=== PATIENT | male | born 1940 | race Caucasian/White ===

== ENCOUNTER 2017-02-28 14:23 | Inpatient (IN) | payer MEDICARE, BC, OTHER ==
[~2017-02-28] VITALS: Ht 180.3 cm; Wt 95.1 kg
[2017-03-04] MEDS ORDERED: META48.53 PO (09:37)
[2017-03-04] MEDS ORDERED: FIBETAB PO (09:37)
[2017-03-04] MEDS ORDERED: DONE10TA7 PO (09:37)
[2017-03-04] MEDS ORDERED: GLUC1CAP16 PO (09:37)
[2017-03-04] MEDS ORDERED: MELO7.5T4 PO (09:37)
[2017-03-04] MEDS ORDERED: SAW450CA2 PO (09:37)
[2017-03-04] MEDS ORDERED: QUIN40TA2 PO (09:37)
[2017-03-04] MEDS ORDERED: CENTTAB PO (09:37)
[2017-03-20] MEDS ORDERED: LACTATED RINGER'S 1000 ML IV PRN (08:30)
[2017-03-20] MEDS ORDERED: METOPROLOL TARTRATE 25 MG TAB PO PRN (08:30)
[2017-03-20] MEDS ORDERED: CHLORHEXIDINE GLUCONATE 2 % 1 PACK (2 CLOTHS) TOPICAL PRN (08:30)
[2017-03-20] MEDS ORDERED: POVIDONE IODINE 5% (ANTISEPSIS KIT) 4 APPLICATIONS EACH NARE PRN (08:30)
[2017-03-20] MEDS ORDERED: SODIUM CHLORID 0.9% 500 ML IV PRN (08:30)
[2017-03-20] MEDS ORDERED: INSULIN HUMAN REGULAR 1,000 UNITS/10 ML VIAL SQ PRN (08:30)
[2017-03-20] MEDS ORDERED: VANCOMYCIN 1000 MG/NS 250 ML (for <70 kg) IV SCH ×2 (08:45)
[2017-03-20] MEDS ORDERED: DEXAMETHASONE SOD PHOS 20 MG/5 ML VIAL IV SCH (08:45)
[2017-03-20] MEDS ORDERED: ceFAZolin 2 GM PREMIX 50 ML IV SCH (08:45)
[2017-03-20] MEDS: POVIDONE IODINE 7.5% SCRUB 118 ML BOTTLE TOPICAL SCH ×2 (08:59→09:23)
[2017-03-20] MEDS ORDERED: MULT1TAB PO (09:07)
[2017-03-20] MEDS ORDERED: CALC1TAB68 PO (09:07)
[2017-03-20] MEDS ORDERED: ACCU40TA PO (09:07)
[2017-03-20 09:10] VITALS: BP 164/96; PULSE 66; RESP 16; TEMP 98.9; O2SAT 96
[2017-03-20] MEDS ORDERED: BUPIVACAINE LIPOSOME PF 1.3% 20 ML VIAL ONE (09:46)
[2017-03-20] MEDS ORDERED: ROPIVACAINE PERI-ARTICULAR INJECTION. P-ARTICULR SCH ×5 (10:00)
[2017-03-20] MEDS ORDERED: TRANEXAMIC ACID INJ 904 MG in SODIUM CHLORIDE 0.9% INJ 100 ML IV SCH ×2 (10:00→13:30)
[2017-03-20] MEDS ORDERED: GENTAMICIN SULFATE 80 MG/2 ML VIAL ONE (10:51)
[2017-03-20] MEDS ORDERED: ePHEDrine/NS 25 MG/5 ML SYR IV ONE (12:00)
[2017-03-20] MEDS ORDERED: LACTATED RINGER'S 1000 ML INJ 1,000 ML IV ONE (12:00)
[2017-03-20] MEDS ORDERED: ONDANSETRON HCL 4 MG/2 ML VIAL IV PUSH ONE (12:00)
[2017-03-20] MEDS ORDERED: PROPOFOL 200 MG/20 ML AMP IV ONE (12:00)
[2017-03-20] MEDS ORDERED: MORPHINE SULFATE 4 MG/ML INJ IV PUSH PRN (13:30)
[2017-03-20] MEDS ORDERED: BISACODYL 10 MG SUPP RECTAL PRN (13:30)
[2017-03-20] MEDS ORDERED: ZOLPIDEM TARTRATE 5 MG TAB PO PRN (13:30)
[2017-03-20] MEDS ORDERED: ONDANSETRON HCL 4 MG/2 ML VIAL IVP PRN (13:30)
[2017-03-20] MEDS ORDERED: SODIUM CHLORIDE 0.9% FLUSH 5 ML FLUSH IVF PRN (13:30)
[2017-03-20] MEDS ORDERED: NALOXONE HCL 0.4 MG/ML AMP IV PRN (13:30)
[2017-03-20] MEDS ORDERED: ALUMINUM/MAGNESIUM/SIMETH 30 ML CUP PO PRN (13:30)
[2017-03-20] MEDS ORDERED: Post-op Orders (for Pharmacy) MISC XX ONE (13:30)
[2017-03-20] MEDS ORDERED: diphenhydrAMINE HCL 50 MG/ML VIAL IV PRN (13:30)
--- NOTE | 2017-03-20 13:32 | PD.OP ---
cc: Kaveh Balderas MD Operative Report Date of Surgery: March 20, 2017 Preoperative Diagnosis: Left knee severe osteoarthritis Postoperative Diagnosis: Same Procedure: Left total knee arthroplasty Anesthesia: Spinal and adductor canal block Surgeon: Kaveh Balderas Green Material Value Added Assessor(s): BAKARI Caicedo The surgical procedure was assisted by my Advanced Registered Nurse Practitioner. My AIRCRAFT INSPECTOR presence was necessary throughout this case for the manipulation and positioning of the surgical extremity. My AIRCRAFT INSPECTOR was assisting me throughout the duration of this procedure. The skill set of an Advance Registered Nurse Practitioner was medically necessary to complete this procedure. During the surgical case, the concrete technician was working at the back table and the Advance Registered Nurse Practitioner was directly assisting me. Operation and Findings: IMPLANTS: DePuy Attune: Patella: size 38. Femur, posterior stabilized size 8. Tibia, rotating platform size 7. Tibial insert, rotating platform, posterior stabilized size 7 mm thickness. ESTIMATED BLOOD LOSS: 400 cc TOURNIQUET TIME: 39 minutes at 250 mmHg pressure. JUSTIFICATION FOR PROCEDURE: The patient has end-stage osteoarthritis to the knee. There is an attached conservative measures pathway form in the chart that describes the nonoperative measures that were undertaken prior to consideration of surgical management. The patient understood the risks and benefits of surgical management. See my office notes for further details PROCEDURE: The patient was brought back to the operative theatre. Adequate anesthesia was obtained. The patient received intravenous vancomycin and Ancef. The lower extremity was prepped and draped in the usual sterile fashion.The leg was exsanguinated, the tourniquet was raised. A standard anterior incision was performed followed by medial parapatellar arthrotomy was performed. End-stage arthritis was identified. Osteotomy of the patella was performed. We drilled holes for the patella. We trialed the patella component. We placed an intramedullary guide into the distal femur. We ultimately resected 13 mm off of the distal femur in 5 degrees of valgus. The remnants of the ACL and PCL were resected. Osteotomy of the proximal tibia was performed, resecting 5 mm off of the medial side. This was done with 3 degrees of posterior slope using an extramedullary guide. The distal end of the guide was placed in the mid aspect of the ankle. The femur was sized, and four chamfer cuts were completed in 3 of external rotation. We then cut the central box in the distal femur to replace the PCL. We resected the remnants of the menisci and removed osteophytes off of the femur and tibia. We then trialed the knee. We punched the tibia for the keel, and then used standard technique to cement in components. Excess cement was removed. We trialed the knee again and the final polyethylene thickness was chosen to provide extension to 0 degrees, and flexion of 140 degrees to gravity. The ligaments were appropriately balanced. Lateral release was necessary to obtain excellent patellofemoral tracking. The tourniquet was released and adequate hemostasis was obtained. Note that there was a vessel on the lateral aspect of the knee that did bleed quite a bit which was the source of the majority of blood loss. This was hemostased well prior to final closure. An intra-articular injection of a ropivacaine cocktail was injected. The posterior knee was inspected for excess cement, which was removed. The final polyethylene was put into position after thorough irrigation. We then closed deep fascia with a #2 Stratafix followed by skin with 2-0 Vicryl followed by precious. Postop plan is to weight-bear as tolerated. DVT prophylaxis will be performed with SCDmariana, JUDITH alexis, early mobilization, and Lovenox followed by aspirin. Kaveh Balderas MD March 20, 2017 13:32
[2017-03-20] MEDS ORDERED: ASPI325T PO (13:34)
[2017-03-20] MEDS ORDERED: NORC5TAB PO (13:34)
[2017-03-20] MEDS ORDERED: ENOX40P SQ (13:34)
[2017-03-20] MEDS ORDERED: DO NOT ADM ANY ANTICOAGULANT DRUGS PRN (14:00)
--- NOTE | 2017-03-20 14:02 | HHI.DCPOC ---
Discharge Care Plan Diagnosis: (1) Primary localized osteoarthrosis, lower leg (2) Status post total knee replacement, left Your Health Problems Are: Difficulty with ADL Goals to Promote Your Health * To prevent worsening of your condition and complications * To maintain your health at the optimal level Directions to Meet Your Goals Take your medications as prescribed Follow your dietary instruction Follow activity as directed Keep your appointments as scheduled Take your immunizations and boosters as scheduled If your symptoms worsen call your PCP, if no PCP go to Urgent Care Center or Emergency Room Smoking is Dangerous to Your Health. Avoid second hand smoke Call the 24-hour hour crisis hotline for domestic abuse at Narendra Winters March 20, 2017 14:02
[2017-03-20] MEDS ORDERED: MIDAZOLAM HCL 2 MG/2 ML VIAL ONE (14:03)
--- NOTE | 2017-03-20 14:03 | HHI.FF ---
Face to Face Verification Diagnosis: (1) Primary localized osteoarthrosis, lower leg (2) Status post total knee replacement, left Physical Therapy Gait training, Transfer training, bed to chair Knee: Total knee Left LE Weight Bearing: WB as tolerated Left LE Range of Motion: Active ROM Nursing Nursing: Gaston teaching, Dressing changes Dressing Changes: Daily dressing change I have seen patient Khanh Hansen on 03/20/17. My clinical findings support the need for the requested home health care services because: Limited ability to care for self High risk of falls I certify that my clinical findings support that this patient is homebound because: Post-op weakness Unsteady gait/balance Narendra Winters March 20, 2017 14:03
[2017-03-20] MEDS ORDERED: CPMMACHINE (14:04)
[2017-03-20] MEDS ORDERED: COMMODE 3-IN-11 MIS (14:04)
[2017-03-20] MEDS ORDERED: WALKER WHEELS/F1 MIS (14:04)
--- NOTE | 2017-03-20 15:14 | RADRPT ---
EXAM DATE/TIME: 03/20/2017 14:32 [facility] COMPARISON: No previous studies available for comparison. INDICATIONS : Post op left knee replacement. MEDICAL HISTORY : None. SURGICAL HISTORY : None. ENCOUNTER: Initial ACUITY: 1 day PAIN SCORE: 0/10 LOCATION: Left knee. FINDINGS: 2 views left knee. Total knee prosthesis. Alignment within normal limits. No evidence of fracture. An terior cutaneous precious. CONCLUSION: Postoperative appearance left total knee prosthesis. Sarmad Rai MD on March 20, 2017 at 15:12 Board Certified Radiologist. This report was verified electronically.
[2017-03-20] MEDS ORDERED: *morphine SULFATE 8 MG/ML PERIprocedure ONLY ONE (15:24)
[2017-03-20 16:31] VITALS: BP 124/76; PULSE 79; RESP 17; TEMP 96; O2SAT 94
[2017-03-20] MEDS: ACETAMINOPHEN/HYDROcodone 325 MG/5 MG TAB PO PRN ×3 (17:14→22:02)
[2017-03-20 20:01] VITALS: BP_SYST 131; BP_SYST 137; BP_DIAS 64; BP_DIAS 73; PULSE 77; PULSE 88; RESP 18; TEMP 94.5; TEMP 96.9; O2SAT 94; O2SAT 95
[2017-03-20] MEDS: DONEPEZIL HCL 5 MG TAB PO SCH (20:37)
[2017-03-20] MEDS: SODIUM CHLORIDE 0.9% FLUSH 5 ML FLUSH IVF SCH (20:38)
--- NOTE | 2017-03-20 22:44 | MB ---
cc: KAIT DOUGLAS MD DATE OF CONSULTATION 03/20/2017 DATE OF 1940 REASON FOR CONSULTATION Medical management. HISTORY OF PRESENT ILLNESS This pleasant 76-year-old white male who came into the hospital to have an elective left total knee arthroplasty. He is a patient of Dr. Balderas and has been followed by Dr. Balderas on an outpatient basis for his severe osteoarthritis. The patient participated in outpatient therapy and treatment regimens which assisted with his osteoarthritis and pain management but decided to have elective surgery. Today he had a left total knee arthroplasty. He is status post op in his private room sitting up in the chair. He is alert, oriented and cooperative. PAST MEDICAL HISTORY 1. Skin cancers. 2. Benign prostatic hypertrophy. 3. Nose fracture. 4. Dementia, mild. 5. Hypertension. 6. Seasonal allergies. PAST SURGICAL HISTORY 1. Repair of nose. 2. Right foot bunion surgery. 3. Tonsillectomy and adenoidectomy. ALLERGIES NONE KNOWN. MEDICATIONS 1. Accupril. 2. Fiber caps. 3. Metamucil. 4. Centrum. 5. Glucosamine. 6. [place]. 7. Donepizil. SOCIAL HISTORY Patient , currently lives with his . Denies any tobacco or illicit drug use. He does have a rare social beer, especially with special ball games. REVIEW OF SYSTEMS A 12-point review was done. Positives noted are status post left total knee arthroplasty with left knee pain and pain management. Severe osteoarthritis. Otherwise systems negative or unremarkable. PHYSICAL EXAMINATION VITAL SIGNS: Temperature is 97.7, pulse 83, respirations 18, blood pressure 142/66 and 123/65. O2 sat 95% currently on nasal cannula at 2 liters. GENERAL: Well-developed, well-nourished elderly white male looks to be his stated age. He is sitting up resting in the chair. Left knee has an ice pack and a bulky dressing which is clean, dry and intact. SKIN: [place], warm and dry. HEENT: Atraumatic, normocephalic. ELSA at 2. Tongue is midline. Speech is clear. No scleral icterus. NECK: Supple. CARDIOVASCULAR: S1-S2, regular rate and rhythm. No murmurs, rubs gallops. PULMONARY: Essentially clear anteriorly and posteriorly without wheezes, rales or rhonchi. ABDOMEN: Round, soft, nontender, nondistended. Active bowel sounds in all four quads. GENITOURINARY: Haynes catheter in place draining clear yellow urine. MUSCULOSKELETAL: Moves upper extremities with purpose. His hand frame changer are equal. Lower extremities can move his right leg with purpose. He is able to raise his left knee and left leg on command. NEUROLOGIC: He is alert and oriented. A good historian. Hand frame changer her equal. PSYCHIATRIC: Appropriate mood and affect. LABORATORY DATA Diagnostic data preop done on 03/04/2017 white count 6.2, hemoglobin 16.1, hematocrit 46.9, platelet count 205. MPV is 6.8. Eosinophil auto count 6.3. PT/INR 1.0. Chemistry, sodium 140, potassium 4.0, chloride 104, carbon dioxide 28.5, BUN 15, creatinine 1.1. GFR is 65. Fasting glucose 130. Total bilirubin 1.4. All other labs are normal in the chemistry profile. Urine is negative. No cultures indicated. IMAGING Showed left knee x-ray postoperative appearance of left total knee prosthesis. ASSESSMENT/PLAN 1. Osteoarthritis, severe. The patient is status post left total knee arthroplasty. 2. History of Benign prostatic hypertrophy. 3. History of seasonal allergies. 4. Hyperglycemia, mild, in the presence of no diabetes. Our plan is to monitor for any medical management. The patient will be followed per orthopedics for their expert opinion on pain management and his postoperative care. We will monitor his labs in the morning which will include a CBC and BMP. Bowel regimen which has been discussed in detail with the patient and his . We will visit daily and follow for any of his needs. To my knowledge the patient is full code, full aggressive care. Thank you very much for the consultation. Dictated by: BAKARI Zamora MD LEONA Hernandez/MARNI /6:11 PM /10:24 PM
[2017-03-20] MEDS: SODIUM CHLOR 0.9% 1000 ML INJ 1,000 ML IV SCH (23:29)
[2017-03-21] VITALS (8 sets, daily range): BP systolic 116–152; BP diastolic 60–85; PULSE 75–78; RESP 16–20; TEMP 96.3–97.7; O2SAT 92–97
[2017-03-21 05:09] LABS: HEMATOCRIT 35.6 % (39.0-51.0); MEAN CELL VOLUME 86.8 FL (80.0-100.0); MEAN CORPUSCULAR HEMOGLOBIN 30.4 PG (27.0-34.0); PLATELET COUNT 181 TH/MM3 (150-450); RED CELL DISTRIBUTION WIDTH 13.2 % (11.6-17.2); REVIEW FLAG FINAL; WHITE BLOOD COUNT 16.5 TH/MM3 (4.0-11.0)
[2017-03-21 05:29] LABS: BICARBONATE 26.3 MEQ/L (21.0-32.0); POTASSIUM 4.5 MEQ/L (3.5-5.1)
[2017-03-21] MEDS: ACETAMINOPHEN/HYDROcodone 325 MG/5 MG TAB PO PRN ×3 (05:33→19:58)
[2017-03-21] MEDS ORDERED: DEXAMETHASONE SOD PHOS 20 MG/5 ML VIAL IV ONE (07:45)
[2017-03-21] MEDS: LISINOPRIL 20 MG TAB PO SCH (08:29)
[2017-03-21] MEDS: SODIUM CHLORIDE 0.9% FLUSH 5 ML FLUSH IVF SCH ×2 (08:29→19:58)
[2017-03-21] MEDS: MAGNESIUM HYDROXIDE SUSP 30 ML CUP PO PRN (08:29)
[2017-03-21] MEDS: SODIUM CHLOR 0.9% 1000 ML INJ 1,000 ML IV SCH ×2 (08:30→19:58)
[2017-03-21] MEDS: PSYLLIUM FIBER SF/GF 6 GM POWD PKT PO PRN (08:32)
[2017-03-21] MEDS: ENOXAPARIN SODIUM 40 MG/0.4 ML SYRINGE SQ SCH (12:18)
--- NOTE | 2017-03-21 12:45 | PD.ORT.PN ---
Subjective Post Op Day #: 1 Subjective Remarks Patient OOB in chair with c/o mild pain to the left knee. Patient is having difficulty with urination. Objective Vitals Vital Signs Date Time Temp Pulse Resp B/P Pulse Ox O2 Delivery O2 Flow Rate FiO2 03/21/17 09:03 94 21 03/21/17 08:00 96.8 75 20 139/79 95 03/21/17 06:46 96.7 75 18 116/69 92 03/21/17 03:59 95 Nasal Cannula 2.00 03/21/17 00:58 96.9 77 18 131/64 94 03/20/17 20:01 96.9 77 18 131/64 94 03/20/17 20:01 94.5 88 18 137/73 95 03/20/17 16:31 96.0 79 17 124/76 94 03/20/17 15:45 97.7 83 18 142/66 95 Nasal Cannula 2 03/20/17 15:15 81 18 123/65 95 Nasal Cannula 2 03/20/17 15:00 81 17 132/66 95 Nasal Cannula 2 03/20/17 14:45 80 18 122/63 95 Nasal Cannula 2 03/20/17 14:30 81 17 117/59 94 Nasal Cannula 2 03/20/17 14:15 84 15 122/59 91 Nasal Cannula 2 03/20/17 13:58 97.5 86 15 122/62 93 Room Air I/O 03/20/17 03/20/17 03/20/17 03/21/17 03/21/17 03/21/17 07:00 15:00 23:00 07:00 15:00 23:00 Intake Total 1500 ml 560 ml 360 ml Output Total 650 ml 500 ml 200 ml Balance 850 ml 60 ml 160 ml Intake Oral 360 ml 360 ml IV Total 200 ml Other 1500 ml Output Urine Total 600 ml 500 ml 200 ml Estimated Blood Loss 50 ml # Bowel Movements 0 0 Result Diagram: 03/21/17 0444 03/21/17 0444 Imaging Last 24 hours Impressions Knee X-Ray 03/20/17 1329 Signed Impressions: Service Date/Time: Monday, March 20, 2017 14:32 - CONCLUSION: Postoperative appearance left total knee prosthesis. Sarmad Rai MD Procedures Left TKA Objective Remarks The patient's dressing was changed with scant serosanguineous drainage. Incision is well approximated with surgical clips intact. No redness or s/s of infection. EHL/TA/G intact. No calf tenderness and swelling. 2+ pedal pulses. Minimal swelling. + SILT Assessment & Plan Ortho Post Op Day #: 1 Problem List: Assessment and Plan POD #1: Left TKA 1. WBAT LLE 2. Lovenox followed by ASA for DVT prophylaxis 3. Ice to the left knee PRN 4. I will order a STAT UA to r/o infection and will order flomax. 5. Stable for discharge home with home health today if urinary symptoms improve. Narendra Winters Mar 21, 2017 12:45
[2017-03-21] MEDS: TAMSULOSIN HCL 0.4 MG CAP PO SCH (14:03)
[2017-03-21 14:48] LABS: BACTERIA, URINE FEW /hpf; BLOOD, URINE LARGE (NEG); GLUCOSE,URINE NEG (NEG); KETONE, URINE NEG (NEG); MUCUS URINE FEW /lpf (OCC); NITRITE,URINE NEG (NEG); PH, URINE 5.5 (5.0-8.5); SQUAMOUS EPITHELIAL CELL URINE 2 /hpf (0-5)
[2017-03-21 14:49] LABS: COMMENT (UR) CULTURE INDICATED; CULTURE IF INDICATED CULTURE INDICATED; URINE COLOR LIGHT-BROWN (YELLW/STRAW)
--- NOTE | 2017-03-21 15:00 | HHI.PR ---
Subjective Remarks Sitting up in chair Alert and awake Mild anxiety over urinary retention Up to bathroom with minimal assistance for BM Bowel regimen BM yesterday Left knee dressing clean dry and intact Afebrile Objective Objective Results - Vital Signs Date Time Temp Pulse Resp B/P Pulse Ox O2 Delivery O2 Flow Rate FiO2 03/21/17 12:00 96.3 78 20 146/79 96 03/21/17 09:03 94 21 03/21/17 08:00 96.8 75 20 139/79 95 03/21/17 06:46 96.7 75 18 116/69 92 03/21/17 03:59 95 Nasal Cannula 2.00 03/21/17 00:58 96.9 77 18 131/64 94 03/20/17 20:01 96.9 77 18 131/64 94 03/20/17 20:01 94.5 88 18 137/73 95 03/20/17 16:31 96.0 79 17 124/76 94 03/20/17 15:45 97.7 83 18 142/66 95 Nasal Cannula 2 03/20/17 15:15 81 18 123/65 95 Nasal Cannula 2 03/20/17 15:00 81 17 132/66 95 Nasal Cannula 2 I/O 03/20/17 03/20/17 03/20/17 03/21/17 03/21/17 03/21/17 07:00 15:00 23:00 07:00 15:00 23:00 Intake Total 1500 ml 560 ml 360 ml Output Total 650 ml 500 ml 200 ml Balance 850 ml 60 ml 160 ml Intake Oral 360 ml 360 ml IV Total 200 ml Other 1500 ml Output Urine Total 600 ml 500 ml 200 ml Estimated Blood Loss 50 ml # Bowel Movements 0 0 Result Diagram: 03/21/17 0444 03/21/17 0444 ROS General: Weakness (generalized left knee day 1 postop, TKA) Pulmonary: Other (lung volumes normal) /OVER HAULER HELPER: Dysuria, Other (urinary retention possible) Physical Exam Physical Exam PHYSICAL EXAMINATION GENERAL: This is an elderly well-nourished male Sitting up in a chair He is alert and awake, HEAD: Normocephalic, atraumatic Facial features appear symmetric. OROPHARYNGEAL: Oropharynx without erythema or edema. NECK: Supple. Trachea midline without deviation. CARDIAC: Regular rhythm, regular rate, S1 and S2 are heard. LUNGS: Clear to auscultation bilaterally. Respirations unlabored ABDOMEN: Soft, bowel sounds are active, BM yesterday and in the bathroom now for possible BM EXTREMITIES: Mild edema, Left knee moves all extremities with purpose NEUROLOGICAL: Patient mood and affect appropriate . Equal hand sole ruffer SKIN:Warm and dry, left knee dressing clean dry and intact Objective Remarks I have just started having problems urinating today. This has been something I had before this hospital stay A/P Assessment and Plan Severe osteoarthritis , status post Left Total TKA WBAT LLE Lovenox followed by ASA for DVT prophylaxis Ice to the left knee if requested. History of BPH, patient is now having some urinary retention post Haynes catheter, now. Patient has voided several times but in the past hour does not feel like his bladder is emptying UA done, culture and sensitivity is pending, although patient has negative leukocyte Estrace, but hematuria noted. Encourage patient to try to stand and void, she started on Flomax today. Will check with bladder scanner for approximate mount of urine in bladder. If 400cc or >, and patient is incomfortable, may straight cath X 1. History of seasonal allergies, no acute needs for now medical management Hyperglycemia in the presence of non-diabetes, patient does have mild hyperglycemia but could be related to stress, postop,... Will have him follow- up with his PCP. We'll also check hemoglobin A1c Vital signs reviewed Labs reviewed, UA will be checked for culture and sensitivity, chief concern is hematuria, possibly causing urinary retention. Leukocytosis 16.5 probably secondary to steroid dose, small or minimal amount of dehydration, encourage patient to take by mouth fluids well Gia Betancur Mar 21, 2017 14:59
[2017-03-21 19:18] LABS: HEMATOCRIT 34.3 % (39.0-51.0); MEAN CELL VOLUME 87.8 FL (80.0-100.0); MEAN CORPUSCULAR HEMOGLOBIN 30.2 PG (27.0-34.0); MEAN CORPUSCULAR HGB CONC 34.4 % (32.0-36.0); PLATELET COUNT 172 TH/MM3 (150-450); RED CELL DISTRIBUTION WIDTH 13.2 % (11.6-17.2); REVIEW FLAG FINAL; WHITE BLOOD COUNT 13.3 TH/MM3 (4.0-11.0)
[2017-03-21] MEDS: DONEPEZIL HCL 5 MG TAB PO SCH (19:57)
[2017-03-21] MEDS: DOCUSATE SODIUM 100 MG CAP PO SCH (19:57)
[2017-03-21] MEDS: MULTIVITAMINS/MINERALS THERAPEUTIC TAB PO SCH (19:57)
[2017-03-21 22:16] LABS: HEMOGLOBIN A1b 1.6 %; HEMOGLOBIN Ao 85.4 %; HEMOGLOBIN P3 5.2 %
[2017-03-22] VITALS: BP 126/71; PULSE 70; RESP 15; TEMP 96.6; O2SAT 96
[2017-03-22] MEDS: ACETAMINOPHEN/HYDROcodone 325 MG/5 MG TAB PO PRN ×5 (01:56→22:30)
[2017-03-22 04:00] VITALS: BP 147/78; PULSE 63; RESP 16; TEMP 97; O2SAT 94
[2017-03-22] MEDS: SODIUM CHLOR 0.9% 1000 ML INJ 1,000 ML IV SCH ×2 (06:10→15:29)
[2017-03-22 07:13] LABS: AUTOMATED NEUTROPHIL # 10.2 TH/MM3 (1.8-7.7); HEMATOCRIT 34.2 % (39.0-51.0); HEMO FLAGS DIFF FINAL; LYMPH % 8.7 % (9.0-44.0); LYMPHOCYTE # 1.1 TH/MM3 (1.0-4.8); MEAN CORPUSCULAR HEMOGLOBIN 30.4 PG (27.0-34.0); MEAN CORPUSCULAR HGB CONC 34.6 % (32.0-36.0); MONO % 8.3 % (0.0-8.0); PLATELET COUNT 168 TH/MM3 (150-450); RED BLOOD COUNT 3.89 MIL/MM3 (4.50-5.90); RED CELL DISTRIBUTION WIDTH 13.1 % (11.6-17.2); WHITE BLOOD COUNT 12.3 TH/MM3 (4.0-11.0)
[2017-03-22 07:33] LABS: BICARBONATE 27.8 MEQ/L (21.0-32.0); POTASSIUM 4.1 MEQ/L (3.5-5.1)
[2017-03-22 08:00] VITALS: BP 141/80; PULSE 66; RESP 20; TEMP 96.6; O2SAT 94
[2017-03-22] MEDS: DOCUSATE SODIUM 100 MG CAP PO SCH ×2 (10:16→22:28)
[2017-03-22] MEDS: LISINOPRIL 20 MG TAB PO SCH (10:16)
[2017-03-22] MEDS: SODIUM CHLORIDE 0.9% FLUSH 5 ML FLUSH IVF SCH ×2 (10:16→22:29)
[2017-03-22] MEDS: MULTIVITAMINS/MINERALS THERAPEUTIC TAB PO SCH ×2 (10:17→22:28)
[2017-03-22] MEDS: MAGNESIUM HYDROXIDE SUSP 30 ML CUP PO PRN ×2 (10:17→18:15)
[2017-03-22] MEDS: PSYLLIUM FIBER SF/GF 6 GM POWD PKT PO PRN (10:17)
[2017-03-22] MEDS: TAMSULOSIN HCL 0.4 MG CAP PO SCH ×2 (10:17→22:29)
[2017-03-22 12:00] VITALS: BP 145/81; PULSE 71; RESP 20; TEMP 97.4; O2SAT 96
[2017-03-22] MEDS: ENOXAPARIN SODIUM 40 MG/0.4 ML SYRINGE SQ SCH (13:34)
--- NOTE | 2017-03-22 15:38 | HHI.PR ---
Subjective Subjective Remarks navarro placed yesterday, d/c today at 1330 voiding small amounts, some burning, concentrated urine constipated, trying to have BM, has had PO laxatives declined supp but now wants it no fever no cp no sob pain well controlled Review of Systems Constitutional Constitutional Remarks 12 point ROS completed, negative except as noted above Vitals/Results Intake & Output 03/21/17 03/21/17 03/22/17 15:00 23:00 07:00 Intake Total 4800 ml 710 ml 1226 ml Output Total 400 ml 1500 ml 450 ml Balance 4400 ml -790 ml 776 ml Intake Oral 4800 ml 480 ml 240 ml IV Total 230 ml 986 ml Output Urine Total 400 ml 1500 ml 450 ml Bladder Scan Volume Amount 689 ml # Bowel Movements 0 0 Vital Signs Vital Signs Date Time Temp Pulse Resp B/P Pulse Ox O2 Delivery O2 Flow Rate FiO2 03/22/17 12:36 Room Air 03/22/17 12:00 97.4 71 20 145/81 96 03/22/17 08:00 96.6 66 20 141/80 94 03/22/17 04:00 Room Air 03/22/17 04:00 97.0 63 16 147/78 94 03/22/17 00:00 Room Air 03/22/17 00:00 96.6 70 15 126/71 96 03/21/17 20:00 Room Air 03/21/17 19:00 97.0 76 16 152/85 95 03/21/17 16:00 97.7 75 20 140/60 97 CBC/BMP: 03/22/17 0607 03/22/17 0607 Lab Results Laboratory Tests Test 03/21/17 03/22/17 18:53 06:07 White Blood Count 13.3 TH/MM3 12.3 TH/MM3 Red Blood Count 3.90 MIL/MM3 3.89 MIL/MM3 Hemoglobin 11.8 GM/DL 11.8 GM/DL Hematocrit 34.3 % 34.2 % Mean Corpuscular Volume 87.8 FL 88.0 FL Mean Corpuscular Hemoglobin 30.2 PG 30.4 PG Mean Corpuscular Hemoglobin 34.4 % 34.6 % Concent Red Cell Distribution Width 13.2 % 13.1 % Platelet Count 172 TH/MM3 168 TH/MM3 Mean Platelet Volume 7.2 FL 7.4 FL Neutrophils (%) (Auto) 83.0 % Lymphocytes (%) (Auto) 8.7 % Monocytes (%) (Auto) 8.3 % Eosinophils (%) (Auto) 0.0 % Basophils (%) (Auto) 0.0 % Neutrophils # (Auto) 10.2 TH/MM3 Lymphocytes # (Auto) 1.1 TH/MM3 Monocytes # (Auto) 1.0 TH/MM3 Eosinophils # (Auto) 0.0 TH/MM3 Basophils # (Auto) 0.0 TH/MM3 CBC Comment DIFF FINAL Differential Comment Sodium Level 141 MEQ/L Potassium Level 4.1 MEQ/L Chloride Level 106 MEQ/L Carbon Dioxide Level 27.8 MEQ/L Anion Gap 7 MEQ/L Blood Urea Nitrogen 18 MG/DL Creatinine 0.86 MG/DL Estimat Glomerular Filtration 87 ML/MIN Rate Random Glucose 120 MG/DL Calcium Level 8.5 MG/DL Physical Exam General General Appearance: Well Developed, Well Nourished, No Acute Distress, Comfortable Eyes Eye Exam: Pupils Equal, Pupils Reactive Ears & Nose Ears & Nose Exam: Nasal Mucosa [place] Throat Throat Exam: Oral Mucosa [place] & Moist Neck Neck Exam: Neck Supple, Trachea Midline Pulmonary Resp Exam: Clear Bilaterally, No Distress Cardiology CV Exam: Regular, Good Perfusion Gastrointestinal/Abdomen GI Exam: Soft, Non-Tender, Bowel Sounds Present, Non-Distended Musculoskeletal MS Remarks left knee dressing D/I Integumentary Skin Exam: Warm, Dry Extremeties Extremities Exam: Pedal Pulses Palpable, Trace Edema Neurologic Neuro Exam: Alert, Awake, Oriented, Speech Clear, Moving All Extremities, No Focal Deficits Psychiatric Psych Exam: Appropriate Responses VTE Prophylaxis VTE Prophylaxis Device: TEDs VTE Prophylaxis Meds: Lovenox Assessment/Plan Problem List: (1) Status post total knee replacement, left (2) Primary localized osteoarthrosis, lower leg (3) Urinary retention (4) BPH (benign prostatic hyperplasia) (5) Leukocytosis (6) HTN (hypertension) Assessment/Plan Severe osteoarthritis , status post Left Total TKA WBAT LLE Lovenox followed by ASA for DVT prophylaxis Ice to the left knee if requested. History of BPH, c/o urinary retention navarro removed this afternoon, voiding small amount, feels he can't empty bladder Flomax increased to 0.4 mg PO bid Constipation Dulcolax now, that may help to void pt. agreeable with supp now continue bowel regimen monitor wbc, still with leukocytosis but trending down poss due stress response , did receive steroids x 1 UA, UC, no growth follow CBC BP control continue home meds elevated blood glucose better today CBC in am Lovenox for DVT prophylaxis CM for dc planning D/W RN D/W Dr. Young D/W pt This patient was seen by myself and Dr. Young, this note is written on her behalf Problem Qualifiers (1) Primary localized osteoarthrosis, lower leg: Qualified Code: M17.12 - Primary localized osteoarthrosis, lower leg, left (2) BPH (benign prostatic hyperplasia): Qualified Code: N40.0 - Benign prostatic hyperplasia, presence of lower urinary tract symptoms unspecified, unspecified morphology (3) Leukocytosis: Qualified Code: D72.829 - Leukocytosis, unspecified type (4) HTN (hypertension): Qualified Code: I10 - Essential hypertension Yudi Yancey Mar 22, 2017 15:38
[2017-03-22 16:00] VITALS: BP 146/81; PULSE 80; RESP 20; TEMP 96.1; O2SAT 94
--- NOTE | 2017-03-22 17:41 | PD.ORT.PN ---
Subjective Subjective Remarks knee feels good. no BM yet, urinary catheter was reinserted due to inability to void. The catheter was taken out a couple of hours ago. Objective Vitals Vital Signs Date Time Temp Pulse Resp B/P Pulse Ox O2 Delivery O2 Flow Rate FiO2 03/22/17 12:36 Room Air 03/22/17 12:00 97.4 71 20 145/81 96 03/22/17 08:00 96.6 66 20 141/80 94 03/22/17 04:00 Room Air 03/22/17 04:00 97.0 63 16 147/78 94 03/22/17 00:00 Room Air 03/22/17 00:00 96.6 70 15 126/71 96 03/21/17 20:00 Room Air 03/21/17 19:00 97.0 76 16 152/85 95 I/O 03/21/17 03/21/17 03/21/17 03/22/17 03/22/17 03/22/17 07:00 15:00 23:00 07:00 15:00 23:00 Intake Total 360 ml 4800 ml 710 ml 1226 ml Output Total 200 ml 400 ml 1500 ml 450 ml Balance 160 ml 4400 ml -790 ml 776 ml Intake Oral 360 ml 4800 ml 480 ml 240 ml IV Total 230 ml 986 ml Output Urine Total 200 ml 400 ml 1500 ml 450 ml Bladder Scan Volume Amount 689 ml # Bowel Movements 0 0 0 Result Diagram: 03/22/17 0607 03/22/17 0607 Imaging Last 24 hours Impressions Knee X-Ray 03/20/17 1329 Signed Impressions: Service Date/Time: Monday, March 20, 2017 14:32 - CONCLUSION: Postoperative appearance left total knee prosthesis. Sarmad Rai MD Procedures Left TKA Objective Remarks The patient's dressing was changed with no serosanguineous drainage. Incision is well approximated with surgical clips intact. No redness or s/s of infection. EHL/TA/G intact. No calf tenderness and swelling. 2+ pedal pulses. Minimal swelling. + SILT Assessment & Plan Assessment and Plan POD #2: Left TKA 1. WBAT LLE 2. Lovenox followed by ASA for DVT prophylaxis 3. Ice to the left knee PRN 4. Stat urinalysis was reviewed, showing mostly red blood cells but 9 white blood cells present. Culture indicated but no definitive sign of infection. We 'll continue to follow. 5. I discussed various options with the patient. He would like to try for the next couple of hours to see if he can urinate. If he can then the patient may be able to be discharged without a catheter. We will place a prescription of Flomax on the chart for the patient to use if he gets discharged without a catheter. 6. If the patient continues to have urinary retention, then he may need to have the catheter placed back in. If he does then he will be discharged with the catheter. I have placed a prescription for Bactrim on the chart to use for prophylaxis in case he does get discharged with the catheter. The patient normally follows up with Dr. Leigh, and he understands he would need to see the urologist within a week for management of the catheter. 7. Additionally we are working on trying to obtain a bowel movement for the patient. 8. The plan has been discussed with nursing. Kaveh Balderas MD Mar 22, 2017 17:41
[2017-03-22] MEDS ORDERED: BACT800T5 PO (17:45)
[2017-03-22] MEDS ORDERED: TAMS5CAP PO (17:45)
[2017-03-22 20:30] VITALS: BP 164/79; PULSE 82; RESP 18; TEMP 97.1; O2SAT 95
[2017-03-22] MEDS: DONEPEZIL HCL 5 MG TAB PO SCH ×2 (22:28→22:37)
[2017-03-23 00:30] VITALS: BP 126/71; PULSE 87; RESP 18; TEMP 98.1; O2SAT 95
[2017-03-23] MEDS: SODIUM CHLOR 0.9% 1000 ML INJ 1,000 ML IV SCH (01:29)
[2017-03-23] MEDS: ACETAMINOPHEN/HYDROcodone 325 MG/5 MG TAB PO PRN ×2 (05:13→10:54)
[2017-03-23 06:40] LABS: AUTOMATED NEUTROPHIL # 8.1 TH/MM3 (1.8-7.7); BASOPHIL % 0.1 % (0.0-2.0); EOSINOPHIL # 0.1 TH/MM3 (0-0.4); EOSINOPHIL % 0.5 % (0.0-4.0); HEMATOCRIT 33.1 % (39.0-51.0); HEMO FLAGS DIFF FINAL; LYMPHOCYTE # 0.8 TH/MM3 (1.0-4.8); MEAN CELL VOLUME 87.1 FL (80.0-100.0); MEAN CORPUSCULAR HEMOGLOBIN 30.5 PG (27.0-34.0); MONO % 7.9 % (0.0-8.0); NEUT % 83.5 % (16.0-70.0); PLATELET COUNT 184 TH/MM3 (150-450); RED CELL DISTRIBUTION WIDTH 13.3 % (11.6-17.2); WHITE BLOOD COUNT 9.7 TH/MM3 (4.0-11.0)
[2017-03-23 07:04] LABS: BICARBONATE 29.7 MEQ/L (21.0-32.0); POTASSIUM 4.1 MEQ/L (3.5-5.1)
--- NOTE | 2017-03-23 07:06 | PD.ORT.PN ---
Subjective Subjective Remarks pt complains of post op knee pain ready to be discharged home today having urinary retention, being discharged with navarro, following up with urology Objective Vitals Vital Signs Date Time Temp Pulse Resp B/P Pulse Ox O2 Delivery O2 Flow Rate FiO2 03/23/17 00:30 98.1 87 18 126/71 95 03/22/17 20:30 97.1 82 18 164/79 95 03/22/17 16:00 96.1 80 20 146/81 94 03/22/17 12:36 Room Air 03/22/17 12:00 97.4 71 20 145/81 96 03/22/17 08:00 96.6 66 20 141/80 94 I/O 03/22/17 03/22/17 03/22/17 03/23/17 03/23/17 03/23/17 07:00 15:00 23:00 07:00 15:00 23:00 Intake Total 1226 ml 480 ml 240 ml 240 ml Output Total 450 ml 1200 ml 375 ml 800 ml Balance 776 ml -720 ml -135 ml -560 ml Intake Oral 240 ml 480 ml 240 ml 240 ml IV Total 986 ml Output Urine Total 450 ml 1200 ml 375 ml 800 ml Bladder Scan Volume Amount 687 ml 689 ml # Bowel Movements 0 0 2 0 Result Diagram: 03/23/17 0544 03/22/17 0607 Imaging Last 24 hours Impressions Knee X-Ray 03/20/17 1329 Signed Impressions: Service Date/Time: Monday, March 20, 2017 14:32 - CONCLUSION: Postoperative appearance left total knee prosthesis. Sarmad Rai MD Procedures Left TKA Objective Remarks seen by Dr. Milton Rodriguez left knee dressings dry and intact no calf tenderness, neg homans minimal swelling. Assessment & Plan Assessment and Plan POD #3 Left TKA 1. WBAT LLE 2. Lovenox followed by ASA for DVT prophylaxis 3. Ice to the left knee PRN 4. Stat urinalysis was reviewed, showing mostly red blood cells but 9 white blood cells present. Culture indicated but no definitive sign of infection. We 'll continue to follow. 5. Dr. Balderas discussed various options with the patient. It was decided he would be discharged with catheter on prophylactic Bactrim and also placed on Flomax, will follow up with Dr. Leigh upon discharge . 6. Discharge home today with [facility], orthopedically stable Lis Bell Mar 23, 2017 07:06
[2017-03-23 08:02] VITALS: BP 137/80; PULSE 84; RESP 18; TEMP 97.6; O2SAT 93
--- NOTE | 2017-03-23 08:57 | HHI.PR ---
Subjective Subjective Remarks could not void yesterday, x 2 navarro attempted, finally inserted had small BM no cp no sob no fever no n/v going home today with melanie, states he will call Dr. Leigh to make appointment Review of Systems Constitutional Constitutional Remarks 12 point ROS completed, negative except as noted above Vitals/Results Intake & Output 03/22/17 03/22/17 03/23/17 15:00 23:00 07:00 Intake Total 480 ml 240 ml 240 ml Output Total 1200 ml 375 ml 800 ml Balance -720 ml -135 ml -560 ml Intake Oral 480 ml 240 ml 240 ml Output Urine Total 1200 ml 375 ml 800 ml Bladder Scan Volume Amount 687 ml 689 ml # Bowel Movements 0 2 0 Vital Signs Vital Signs Date Time Temp Pulse Resp B/P Pulse Ox O2 Delivery O2 Flow Rate FiO2 03/23/17 08:02 97.6 84 18 137/80 93 03/23/17 00:30 98.1 87 18 126/71 95 03/22/17 20:30 97.1 82 18 164/79 95 03/22/17 16:00 96.1 80 20 146/81 94 03/22/17 12:36 Room Air 03/22/17 12:00 97.4 71 20 145/81 96 CBC/BMP: 03/23/17 0544 03/23/17 0544 Lab Results Laboratory Tests Test 03/23/17 05:44 White Blood Count 9.7 TH/MM3 Red Blood Count 3.80 MIL/MM3 Hemoglobin 11.6 GM/DL Hematocrit 33.1 % Mean Corpuscular Volume 87.1 FL Mean Corpuscular Hemoglobin 30.5 PG Mean Corpuscular Hemoglobin 35.0 % Concent Red Cell Distribution Width 13.3 % Platelet Count 184 TH/MM3 Mean Platelet Volume 7.3 FL Neutrophils (%) (Auto) 83.5 % Lymphocytes (%) (Auto) 8.0 % Monocytes (%) (Auto) 7.9 % Eosinophils (%) (Auto) 0.5 % Basophils (%) (Auto) 0.1 % Neutrophils # (Auto) 8.1 TH/MM3 Lymphocytes # (Auto) 0.8 TH/MM3 Monocytes # (Auto) 0.8 TH/MM3 Eosinophils # (Auto) 0.1 TH/MM3 Basophils # (Auto) 0.0 TH/MM3 CBC Comment DIFF FINAL Differential Comment Sodium Level 139 MEQ/L Potassium Level 4.1 MEQ/L Chloride Level 103 MEQ/L Carbon Dioxide Level 29.7 MEQ/L Anion Gap 6 MEQ/L Blood Urea Nitrogen 14 MG/DL Creatinine 0.89 MG/DL Estimat Glomerular Filtration 84 ML/MIN Rate Random Glucose 152 MG/DL Calcium Level 8.5 MG/DL Physical Exam General General Appearance: Well Developed, Well Nourished, No Acute Distress, Comfortable Eyes Eye Exam: Pupils Equal, Pupils Reactive Ears & Nose Ears & Nose Exam: Nasal Mucosa Vaiva Vo Throat Throat Exam: Oral Mucosa Vaiva Vo & Moist Neck Neck Exam: Neck Supple, Trachea Midline Pulmonary Resp Exam: Clear Bilaterally, No Distress Cardiology CV Exam: Regular, Good Perfusion Gastrointestinal/Abdomen GI Exam: Soft, Non-Tender, Bowel Sounds Present, Non-Distended Genitourinary Remarks navarro with scott urine Musculoskeletal MS Remarks left knee dressing D/I Integumentary Skin Exam: Warm, Dry Extremeties Extremities Exam: Pedal Pulses Palpable, Trace Edema Neurologic Neuro Exam: Alert, Awake, Oriented, Speech Clear, Moving All Extremities, No Focal Deficits Psychiatric Psych Exam: Appropriate Responses VTE Prophylaxis VTE Prophylaxis Device: TEDs VTE Prophylaxis Meds: Lovenox Assessment/Plan Problem List: (1) Status post total knee replacement, left (2) Primary localized osteoarthrosis, lower leg (3) Urinary retention (4) BPH (benign prostatic hyperplasia) (5) Leukocytosis (6) HTN (hypertension) Assessment/Plan Severe osteoarthritis , status post Left Total TKA WBAT LLE Lovenox followed by ASA for DVT prophylaxis Ice to the left knee if requested. cleared for discharge by ortho History of BPH, c/o urinary retention unable to empty bladder, navarro again reinserted last night continue with navarro, C to assist continue with Flomax 0.4 mg PO bid Constipation had small bm after dulcolax continue bowel regimen monitor wbc, now stable UA, UC, no growth BP control continue home meds elevated blood glucose better today stabe Lovenox for DVT prophylaxis CM for dc planning Ok for discharge f/u Dr. Leigh D/W RN D/W Dr. Young D/W pt D/W CM This patient was seen by myself and Dr. Young, this note is written on her behalf Problem Qualifiers (1) Primary localized osteoarthrosis, lower leg: Qualified Code: M17.12 - Primary localized osteoarthrosis, lower leg, left (2) BPH (benign prostatic hyperplasia): Qualified Code: N40.0 - Benign prostatic hyperplasia, presence of lower urinary tract symptoms unspecified, unspecified morphology (3) Leukocytosis: Qualified Code: D72.829 - Leukocytosis, unspecified type (4) HTN (hypertension): Qualified Code: I10 - Essential hypertension Yudi YanceyP Mar 23, 2017 08:57
--- NOTE | 2017-03-23 08:58 | HHI.FF ---
Face to Face Verification Diagnosis: (1) Primary localized osteoarthrosis, lower leg (2) Urinary retention (3) Leukocytosis (4) HTN (hypertension) (5) BPH (benign prostatic hyperplasia) (6) Status post total knee replacement, left Home Health Nursing Order: Haynes catheter maintenance I have seen patient Khanh Hansen on 03/23/17. My clinical findings support the need for the requested home health care services because: Need for psychosocial assistance I certify that my clinical findings support that this patient is homebound because: Post-op weakness Need for psychosocial assistance Yudi Yancey Mar 23, 2017 08:58
[2017-03-23] MEDS: SODIUM CHLORIDE 0.9% FLUSH 5 ML FLUSH IVF SCH (09:00)
[2017-03-23] MEDS: TAMSULOSIN HCL 0.4 MG CAP PO SCH (10:42)
[2017-03-23] MEDS: DOCUSATE SODIUM 100 MG CAP PO SCH (10:43)
[2017-03-23] MEDS: MULTIVITAMINS/MINERALS THERAPEUTIC TAB PO SCH (10:43)
[2017-03-23] MEDS: LISINOPRIL 20 MG TAB PO SCH (10:43)
[2017-03-23] MEDS: ENOXAPARIN SODIUM 40 MG/0.4 ML SYRINGE SQ SCH (10:53)
--- NOTE | 2017-03-24 22:05 | HHI.DS ---
Discharge Summary Admission Date March 20, 2017 at 07:50 Discharge Date: Mar 23, 2017 Admitting Diagnosis Primary localized OA, lower leg Status post total knee replacement, left Diagnosis: (1) Primary localized osteoarthrosis, lower leg Diagnosis: Principal (2) Status post total knee replacement, left Diagnosis: Principal Procedures Left TKA Brief History This is a 76 year old male patient with severe OA of the left knee CBC/BMP: 03/23/17 0544 03/23/17 0544 Significant Findings Laboratory Tests Test 03/22/17 03/23/17 06:07 05:44 White Blood Count 12.3 TH/MM3 (4.0-11.0) Red Blood Count 3.89 MIL/MM3 3.80 MIL/MM3 (4.50-5.90) (4.50-5.90) Hemoglobin 11.8 GM/DL 11.6 GM/DL (13.0-17.0) (13.0-17.0) Hematocrit 34.2 % 33.1 % (39.0-51.0) (39.0-51.0) Neutrophils (%) (Auto) 83.0 % 83.5 % (16.0-70.0) (16.0-70.0) Lymphocytes (%) (Auto) 8.7 % 8.0 % (9.0-44.0) (9.0-44.0) Monocytes (%) (Auto) 8.3 % (0.0-8.0) Neutrophils # (Auto) 10.2 TH/MM3 8.1 TH/MM3 (1.8-7.7) (1.8-7.7) Monocytes # (Auto) 1.0 TH/MM3 (0-0.9) Estimat Glomerular Filtration 87 ML/MIN (>89) 84 ML/MIN (>89) Rate Random Glucose 120 MG/DL 152 MG/DL (74-106) (74-106) Lymphocytes # (Auto) 0.8 TH/MM3 (1.0-4.8) PE at Discharge seen by Dr. Milton Rodriguez left knee dressings dry and intact no calf tenderness, neg homans minimal swelling. Hospital Course The patient was admitted to the hospital for severe OA of the left knee to have a left TKA. The patient's surgery went well with no complications. The patient is WBAT on the RLE. The patient had a regular diet. The patient was placed on Lovenox followed by ASA for DVT prophylaxis. The patient did have urinary retention after Haynes cath was removed. The patient ended up having his catheter reinserted and was placed on Flomax and prophylactic ABX. The patient was discharged home with home health and will f/u with Dr. Balderas in 1- [address] Leigh (urology) this week. Pt Condition on Discharge: Stable Discharge Disposition: Disch w/ Home Health Serv Discharge Instructions Diet Instructions: As Tolerated, No Restrictions Activities You Can Perform: Weight Bearing as Cruz Activities to Avoid: Strenuous Activity Follow up Referrals: Orthopedics with Kaveh Balderas MD [facility]/ with NURSE [employer] - [phone] New Medications: Aspirin (Aspirin) 325 Mg Tab 325 MG PO DAILY Start Aspirin after Lovenox is completed. Prevent Blood Clot # 30 Ref 0 TAB Commode 3-in-1 (Commode 3-in-1) 1 Mis Mis 1 EA .ROUTE DIRECTED #1 Ref 0 EA CPM-Continuous Passive Motion Machine (CPM-Continuous Passive Motion Machine) 1 Ea Device 1 EA .ROUTE DIRECTED #1 Ref 0 EA Enoxaparin Inj (Lovenox Inj) 40 Mg/0.4 Ml Syr 40 MG SQ DAILY Start Aspirin after Lovenox is completed. Blood Clot Prevention # 10 Ref 0 SYRINGE Hydrocodone-Acetaminophen ([place]) 5-325 mg Tab 1-2 TAB PO Q4H PRN PAIN #60 Ref 0 TAB Sulfamethoxazole-Trimethoprim (Bactrim DS) 800-160 Mg Tab 1 TAB PO BID Infection #20 Ref 0 TAB Tamsulosin (Flomax) 0.4 Mg Cap 0.4 MG PO BID Manage Prostate Problems #20 Ref 0 CAP Walker with Front Wheels (Walker with Front Wheels) 1 Mis Mis 1 EA .ROUTE DIRECTED #1 Ref 0 EA Continued Medications: Calcium Polycarbophil (Fiber-Caps) 625 Mg Tab 625 MG PO DAILY TAB Donepezil (Donepezil) 10 Mg Tab 10 MG PO HS Dementia #30 Ref 0 TAB Jcltvluvszd-Eayqqoboqob-Nky C- (Glucosamine Chondroitin) 1 Cap Cap 1 CAP PO DAILY Multiple Vitamins W/ Minerals (Centrum Silver Adult 50+) 1 Tab Tab 1 TAB PO DAILY Psyllium Powder (Metamucil Original Texture) 48.57 % Pow 1 SCOOP PO TID 1 rounded TEASPOON in 8 oz of liquid at the first sign of irregularity. PRN CONSTIPATION Ref 0 CONTAINER Quinapril (Accupril) 40 Mg Tab 40 MG PO DAILY #30 Ref 0 TAB Discontinued Medications: Meloxicam (Meloxicam) 7.5 Mg Tab 7.5 MG PO DAILY Arthritis Pain Ref 0 TAB [place] (Serenoa Repens) (Saw [place] (Serenoa Repens)) 450 Mg Cap 450 MG PO DAILY Ref 0 Narendra Frankel Mar 24, 2017 22:05
== END 2017-03-23 12:39 | disposition home health service (06) | DRG 470 ==
LOC: HSDI 03-20 07:50 → N06B 03-20 16:08
PROVIDERS: ADMIT Orthopaedic Surgery; ATTEND Orthopaedic Surgery
PROC: 0SRD0J9 Replacement of Left Knee Joint with Synthetic Substitute, Cemented, Open Approach (ICD-10-PCS; principal; 2017-03-20 11:11)
PROC: 0T9B70Z Drainage of Bladder with Drainage Device, Via Natural or Artificial Opening (ICD-10-PCS; 2017-03-21)
DX: M17.12 Unilateral primary osteoarthritis, left knee (principal); I10 Essential (primary) hypertension; R73.9 Hyperglycemia, unspecified; F41.9 Anxiety disorder, unspecified; N40.1 Benign prostatic hyperplasia with lower urinary tract symptoms; D72.829 Elevated white blood cell count, unspecified; K59.00 Constipation, unspecified; R33.8 Other retention of urine; F03.90 Unspecified dementia, unspecified severity, without behavioral disturbance, psychotic disturbance, mood disturbance, and anxiety; Z85.828 Personal history of other malignant neoplasm of skin
CPT/HCPCS: 73560; 80048; 81001; 83036; 85025; 85027; 86850; 86900; 86901; 87086; 94150; C1776; C9290; J0171; J0690; J0735; J1100; J1580; J1650; J1885; J2250; J2270; J2405; J2795; J3010; J3370; J7030; J7050; J7120; L1830

== ENCOUNTER → 2017-03-04 | Outpatient (CLI) | payer MEDICARE, BC, OTHER ==
[~2017-03-04] MED LIST: ACCU40TA PO; ACCU40TA10 PO; ASPI325T PO; BACT800T5 PO; CALC1TAB68 PO; CENTTAB PO; COMMODE 3-IN-11 MIS; CPMMACHINE; DONE10TA7 PO; ENOX40P SQ; FIBETAB PO; GLUC1CAP16 PO; IBUP600T26 PO; MELO7.5T4 PO; META48.53 PO; MISC1CAP2; MULT1TAB PO; NORC5TAB PO; PHEN-430 PO; QUIN40TA2 PO; SAW450CA2 PO; TAB-TAB PO; TAMS5CAP PO; WALKER WHEELS/F1 MIS; ZOCO40TA PO
[2017-03-04 09:46] LABS: AUTOMATED NEUTROPHIL # 4.1 TH/MM3 (1.8-7.7); BASOPHIL % 0.7 % (0.0-2.0); EOSINOPHIL # 0.4 TH/MM3 (0-0.4); EOSINOPHIL % 6.3 % (0.0-4.0); HEMATOCRIT 46.9 % (39.0-51.0); HEMO FLAGS DIFF FINAL; LYMPH % 20.1 % (9.0-44.0); LYMPHOCYTE # 1.3 TH/MM3 (1.0-4.8); MEAN CELL VOLUME 87.9 FL (80.0-100.0); MEAN CORPUSCULAR HEMOGLOBIN 30.1 PG (27.0-34.0); MEAN CORPUSCULAR HGB CONC 34.3 % (32.0-36.0); MONO % 6.6 % (0.0-8.0); NEUT % 66.3 % (16.0-70.0); PLATELET COUNT 205 TH/MM3 (150-450); RED BLOOD COUNT 5.34 MIL/MM3 (4.50-5.90); RED CELL DISTRIBUTION WIDTH 13.2 % (11.6-17.2); WHITE BLOOD COUNT 6.2 TH/MM3 (4.0-11.0)
[2017-03-04 09:57] LABS: APTT (PATIENT) 27.4 SEC (24.3-30.1); PROTHROMBIN TIME - PATIENT 10.7 SEC (9.8-11.6)
[2017-03-04 10:10] LABS: WESTERGREN SEDIMENTATION RATE 1 mm/hr (0-20)
[2017-03-04 10:34] LABS: BACTERIA, URINE RARE /hpf; BLOOD, URINE NEG (NEG); CALCIUM OXALATE CRYSTALS,URINE RARE /hpf; GLUCOSE,URINE NEG (NEG); KETONE, URINE NEG (NEG); MUCUS URINE FEW /lpf (OCC); NITRITE,URINE NEG (NEG); PH, URINE 5.5 (5.0-8.5); URINE COLOR YELLOW (YELLW/STRAW)
[2017-03-04 10:37] LABS: COMMENT (UR) CULT NOT INDICATED; CULTURE IF INDICATED CULT NOT INDICATED
[2017-03-04 10:38] LABS: ALKALINE PHOSPHATASE 63 U/L (45-117); ALT (GPT) 24 U/L (12-78); ANION GAP 8 MEQ/L (5-15); AST (GOT) 15 U/L (15-37); BICARBONATE 28.5 MEQ/L (21.0-32.0); BLOOD UREA NITROGEN 15 MG/DL (7-18); CHLORIDE 104 MEQ/L (98-107); GLOMERULAR FILTRATION RATE 65 ML/MIN (>89); GLUCOSE,FASTING 130 MG/DL (74-99); SODIUM (NA) 140 MEQ/L (136-145); TOTAL BILIRUBIN ADULT 1.4 MG/DL (0.2-1.0)
--- NOTE | 2017-03-04 11:57 | RADRPT ---
EXAM DATE/TIME: 03/04/2017 11:15 [facility] COMPARISON: CHEST PA & LAT, April 14, 2015, 14:37. INDICATIONS : Evaluate for pneumonia, pneumothorax and communicable disease. Pre-op for left total knee arthroplas ty. MEDICAL HISTORY : Hypertension. SURGICAL HISTORY : None. ENCOUNTER: Initial ACUITY: 1 day PAIN SCORE: 0/10 LOCATION: chest FINDINGS: PA and lateral views of the chest demonstrate the lungs to be symmetrically aerated without evidence of mass, infiltrate or effusion. There is stable mild scarring in the right lower lung. The cardiome diastinal contours are unremarkable. Osseous structures are intact. CONCLUSION: No acute disease. No significant change has occurred. Kevin Lobato MD on March 04, 2017 at 11:54 Board Certified Radiologist. This report was verified electronically.
== END ==
LOC: CPRE 08:55
PROVIDERS: ATTEND Orthopaedic Surgery
DX: Z01.812 Encounter for preprocedural laboratory examination (principal); Z01.811 Encounter for preprocedural respiratory examination; M17.12 Unilateral primary osteoarthritis, left knee; M25.50 Pain in unspecified joint; M79.609 Pain in unspecified limb
CPT/HCPCS: 36415; 71020; 80053; 81001; 85025; 85610; 85652; 85730

== ENCOUNTER 2017-03-30 21:47 | Emergency (ER) | payer MEDICARE, BC, OTHER ==
[~2017-03-30] VITALS: Ht 180.3 cm; Wt 88.5 kg
[~2017-03-30 21:47] MED LIST changes: -ACCU40TA10 PO; -CENTTAB PO; -FIBETAB PO; -IBUP600T26 PO; -MELO7.5T4 PO; -MISC1CAP2; -PHEN-430 PO; -QUIN40TA2 PO; -SAW450CA2 PO; -TAB-TAB PO; -ZOCO40TA PO
[2017-03-30 21:49] VITALS: BP 158/87; PULSE 100; RESP 20; TEMP 98.1; O2SAT 93
[2017-03-30] MEDS ORDERED: PHEN-430 PO (22:20)
--- NOTE | 2017-03-30 22:21 | PD ---
HPI Chief Complaint: Complaint Time Seen by Provider: 22:01 Travel History International Travel<30 days: No Contact w/Intl Traveler<30days: No Traveled to known affect area: No History of Present Illness HPI 76-year-old male here for evaluation of inability to void and lower abdominal/ suprapubic pain. History of enlarged prostate. Patient had left total knee replacement on 03/20/17 with prolonged hospital stay secondary to inability to urinate after his Haynes catheter inserted for the procedure was removed. Patient also developed hematuria. He was discharged on 03/23/17 with a Haynes catheter and a leg bag. He was seen by urologist Dr. Harden yesterday and had his Haynes removed that around 8:30 AM. He has been unable to urinate since around 1:00 PM today. He denies hematuria. He has been on Bactrim, Flomax, and Azo. He is having moderate suprapubic abdominal discomfort and distention. PFSH Past Medical History Hx Anticoagulant Therapy: Yes (LOVENOX) Cancer: Yes (SKIN CA REMOVED FROM FACE) Cardiovascular Problems: No High Cholesterol: Yes Diabetes: No Endocrine: No Genitourinary: Yes (ENLARGED PROSTATE) Hepatitis: No Hiatal Hernia: No Hypertension: Yes Immune Disorder: No Musculoskeletal: Yes (OA) Neurologic: Yes (MEMORY LOSS) Psychiatric: No Reproductive: No Respiratory: No Thyroid Disease: No Past Surgical History Abdominal Surgery: No AICD: No Cardiac Surgery: No Ear Surgery: No Endocrine Surgery: No Eye Surgery: No Genitourinary Surgery: No Gynecologic Surgery: No Joint Replacement: No Oral Surgery: Yes (TONSILECTOMY, DEVIATED SEPTAL REPAIR) Pacemaker: No Thoracic Surgery: No Social History Alcohol Use: No Tobacco Use: No Substance Use: No Allergies-Medications (Allergen,Severity, Reaction): Coded Allergies: No Known Allergies (Unverified , 03/30/17) Reported Meds & Prescriptions Reported Meds & Active Scripts Active Bactrim DS (Sulfamethoxazole-Trimethoprim) 800-160 Mg Tab 1 Tab PO BID Flomax (Tamsulosin HCl) 0.4 Mg Cap 0.4 Mg PO BID Walker with Front Wheels (Device) 1 Mis Mis 1 Ea .ROUTE DIRECTED CPM-Continuous Passive Motion Machine 1 Ea Device 1 Ea .ROUTE DIRECTED [place] (Hydrocodone-Acetaminophen) 5-325 mg Tab 1-2 Tab PO Q4H PRN Lovenox Inj (Enoxaparin Sodium) 40 Mg/0.4 Ml Syr 40 Mg SQ DAILY Start Aspirin after Lovenox is completed. Reported Phenazopyridine (Phenazopyridine HCl) 200 Mg Tab 200 Mg PO Q8H PRN Fiber-Caps (Calcium Polycarbophil) 625 Mg Tab 625 Mg PO DAILY Centrum Silver Adult 50+ (Multiple Vitamins W/ Minerals) 1 Tab Tab 1 Tab PO DAILY Accupril (Quinapril HCl) 40 Mg Tab 40 Mg PO DAILY Review of Systems Except as stated in HPI: all other systems reviewed are Neg Physical Exam Narrative GENERAL: Pleasant, well-developed, well-nourished, mild distress secondary to pain. SKIN: Focused skin assessment warm/dry. Ecchymosis to left posterior thigh and leg. Left anterior knee with a wound dressing that is clean, dry, intact, no surrounding warmth or erythema. HEAD: Atraumatic. Normocephalic. EYES: Pupils equal and round. No scleral icterus. No injection or drainage. ENT: Mucous membranes pink and moist. GASTROINTESTINAL: Abdomen soft, nondistended. Mild suprapubic tenderness without peritoneal signs with palpable/distended bladder. MUSCULOSKELETAL: No obvious deformities. No clubbing. No cyanosis. Left knee/ thigh/leg with moderate edema with skin exam as above. NEUROLOGICAL: Awake and alert. No obvious cranial nerve deficits. Motor grossly within normal limits. Normal speech. PSYCHIATRIC: Appropriate mood and affect; insight and judgment normal. Data Data Last Documented VS Vital Signs Date Time Temp Pulse Resp B/P Pulse Ox O2 Delivery O2 Flow Rate FiO2 03/30/17 21:49 98.1 100 20 158/87 93 Orders Urinary Catheter Insert/Apply (03/30/17 22:14) [facility] Medical Decision Making Medical Screen Exam Complete: Yes Emergency Medical Condition: Yes Differential Diagnosis Urinary retention Narrative Course Bedside transabdominal ultrasound was performed by me using the curvilinear probe in shows a large/distended bladder. Coud catheter placed by my nurse with 1000 cc of orange/clear urine output. Patient had almost instantaneous symptomatic relief. His abdominal exam is now completely soft and nontender without any distention. He is stable for discharge home with outpatient follow-up with his urologist this week. He will be discharged home with the catheter and a leg bag. He was informed on when to return to the emergency department. He verbalizes understanding and agreement with plan. Procedures Procedure Narrative Bedside transabdominal ultrasound: Using the curvilinear ultrasound probe, bedside transabdominal ultrasound was performed by me and shows a large/distended bladder. Diagnosis Primary Impression: Urinary retention Referrals: Urologist 3 days Additional Instructions: Follow-up with your urologist this week. Return to the emergency department for worsening symptoms or any other concerns. Scripts Tamsulosin (Flomax)0.4 Mg Cap0.4 Mg PO HS #14 CAP Ref 0 Prov:Henrik Goldman MD 03/30/17 Disposition: 01 DISCHARGE HOME Condition: Stable Henrik Goldman MD Mar 30, 2017 22:21
[2017-03-30] MEDS ORDERED: TAMS5CAP PO (23:05)
[2017-03-30 23:13] VITALS: BP 148/81
== END 2017-03-30 23:34 | disposition home or self-care (01) ==
LOC: PHED 21:47
DX: R33.9 Retention of urine, unspecified (principal); R10.30 Lower abdominal pain, unspecified; I10 Essential (primary) hypertension; E78.00 Pure hypercholesterolemia, unspecified; Z79.01 Long term (current) use of anticoagulants; Z98.890 Other specified postprocedural states; Z87.438 Personal history of other diseases of male genital organs; Z87.39 Personal history of other diseases of the musculoskeletal system and connective tissue; Z86.69 Personal history of other diseases of the nervous system and sense organs
CPT/HCPCS: 51702